=== PATIENT | male | born 1940 | race African-American/Black ===

== ENCOUNTER 2018-08-09 09:07 | Emergency (ER) | payer MEDICARE, OTHER ==
[~2018-08-09] VITALS: Ht 182.9 cm; Wt 100.0 kg
[2018-08-09 11:53] VITALS: BP 120/90
== END 2018-08-09 11:54 | disposition home or self-care (01) ==
LOC: EMS 09:08
DX: S76.312A Strain of muscle, fascia and tendon of the posterior muscle group at thigh level, left thigh, initial encounter (principal); Z88.0 Allergy status to penicillin; W01.0XXA Fall on same level from slipping, tripping and stumbling without subsequent striking against object, initial encounter; Y93.89 Activity, other specified; Y92.89 Other specified places as the place of occurrence of the external cause; Y99.8 Other external cause status
CPT/HCPCS: 73503